=== PATIENT | female | born 1935 | race Caucasian/White ===

== ENCOUNTER → 2016-12-16 | Outpatient (CLI) | payer MEDICARE, BC ==
[~2016-12-16] MED LIST: BACTRIM DS TABL1 TA1 PO; CIPRO PO; PYRIDIUM PO
--- NOTE | ~2016-12-16 | US77 ---
[facility] A Service of [facility] & [facility] RADIOLOGY TEXT RESULTS PATIENT: ALLYSON UMAÑA LOCATION: [facility] : 35 UNIT #: [id number] AGE: [address]: Nithin Bazan MD SEX: F ORDER DR: [id number] [facility] [address] [place], [place] [address] [id number] O MR#: [id number] Acc #: [id number] NAME: ALLYSON UMAÑA : 1935 SEX: F STUDY DATE/TIME: 12/16/2016 12:29 UNIT: [facility] ROOM: STUDY DESCRIPTION: US Kidney Bilateral Complete Attending Physician: Nithin Bazan M.D. Referring Physician: Nithin Bazan M.D. Ordering Physician: Nithin Bazan M.D. Primary Care Physician: Reina Pruitt M.D. MEDICAL IMAGING REPORT This report is preliminary unless electronic signature is present EXAM Renal ultrasound 12/16/2016 HISTORY Chronic urinary tract infection for 3 weeks, worsening. FINDINGS The right kidney measures 10.2 cm, while the left kidney measures 9.6 cm in longitudinal dimensions. There is no evidence of hydronephrosis. Non-obstructing stones are seen in the right kidney. No cystic or solid mass lesions are seen on either kidney. There is normal renal cortical echogenicity. Images of the bladder are normal. IMPRESSION 1. Non-obstructing right renal stones. Otherwise, negative renal ultrasound. 2. Images of the bladder are normal. Dictated by... Rudy Munguia M.D. THIS IS AN ELECTRONICALLY VERIFIED REPORT Rudy Munguia M.D. at 12/17/2016 2:37 PM KRT/pcl TD: 12/16/2016 23:15 JOB #: [id number] MEDICAL IMAGING REPORT Page 1 of 1 COPY
== END | disposition home or self-care (01) ==
LOC: CWCC 12:16
DX: N39.0 Urinary tract infection, site not specified (principal); N20.0 Calculus of kidney
CPT/HCPCS: 76770